=== PATIENT | female | born 1985 | race Caucasian/White ===

== ENCOUNTER 2020-04-02 18:29 | Emergency (ER) | payer OTHER, SELFPAY ==
[2020-04-02 18:32] VITALS: BP 109/84; PULSE 83; RESP 16; TEMP 36.6; O2SAT 99
--- NOTE | 2020-04-02 19:08 | ED.SKABFB ---
HPI - Skin/Abscess/Foreign Bdy General Chief complaint: Skin/Abscess/Foreign Body Stated complaint: abscesses Time Seen by Provider: 04/02/20 18:42 Source: patient Mode of arrival: ambulatory Limitations: no limitations History of Present Illness HPI narrative: This is a 35 year old male that presents to the ER for redness and swelling to bilateral axilla. Reports she noted redness and swelling to the right axilla 3 days ago. Yesterday she noted an area of pain and swelling to the left axilla. Denies fever or drainage. Related Data Home Medications Medication Instructions Recorded Confirmed paroxetine HCl mg PO 04/02/20 Allergies Allergy/AdvReac Type Severity Reaction Status Date / Time No Known Allergies Allergy Verified 04/02/20 18:36 Review of Systems Review of Systems: Narrative: CONSTITUTIONAL: Denies fever SKIN: Reports redness and swelling All systems reviewed & are unremarkable except as noted in HPI and below PMFSH Past Medical History Medical History (Updated 04/02/20 @ 19:19 by Barbie Yuan PA-C) History of depression Social History Social History (Updated 04/02/20 @ 19:12 by Barbie Yuan PA-C) Substance use: never Exam Narrative: Exam Narrative: GENERAL: Well-appearing, obese, and in no acute distress. HEAD: Normocephalic, atraumatic. EYES: EOMI. EXTREMITIES: Normal range of motion. No edema. Right axilla with 3cm area of erythema and induration. Left axilla with 1cm area of erythema and induration. Tender to palpation. No central fluctuance to suggest abscess SKIN: Warm, dry, no rash. NEURO: No focal deficits. Alert and oriented x3. PSYCH: Normal mood and affect Course Vital Signs Vital signs: Vital Signs Temperature 97.9 F 04/02/20 18:32 Pulse Rate 83 04/02/20 18:32 Respiratory Rate 16 04/02/20 18:32 Blood Pressure 109/84 04/02/20 18:32 Pulse Oximetry 99 04/02/20 18:32 Temperature 97.9 F 04/02/20 18:32 Pulse Rate 83 04/02/20 18:32 Respiratory Rate 16 04/02/20 18:32 Blood Pressure 109/84 04/02/20 18:32 Pulse Oximetry 99 04/02/20 18:32 MDM - Skin/Abscess/Foreign Bdy MDM Narrative Medical decision making narrative: Patient presents the emergency department for an area of cellulitis to the right axilla. She is afebrile and nontoxic-appearing. She will be started on oral antibiotics. Patient is stable and felt appropriate for further outpatient evaluation. She is to follow-up with primary care doctor. She was given warnings to return to the ER Critical Care Time Critical Care Time Critical Care Time: No Discharge Plan Discharge Clinical Impression: Cellulitis Qualifiers: Site of cellulitis: extremity Site of cellulitis of extremity: axilla Laterality: right Qualified Code(s): L03.111 - Cellulitis of right axilla Patient Disposition: Home, Self-Care Condition: Stable Instructions: Antibiotic Form, Cellulitis (ED) Prescriptions: New doxycycline hyclate 100 mg capsule 100 mg PO BID 7 Days Qty: 14 RF: 0 No Action paroxetine HCl 40 mg tablet PO RF: 0 Follow-up/Referrals: PHYSICIAN NOT ON STAFF,NONSTAFF [Primary Care Provider] - Serafin Escoto MD [Physician] - 3 Days
[2020-04-02] MEDS: DOXYCYCLINE HYCLATE 100 MG TABLET PO (19:30)
== END 2020-04-02 20:23 | disposition home or self-care (01) ==
LOC: ANHED 19:41
PROVIDERS: Emergency Provider Emergency Medicine
DX: L03.111 Cellulitis of right axilla (principal); F32.9 Major depressive disorder, single episode, unspecified
CPT/HCPCS: 99283; A9270

== ENCOUNTER 2020-06-07 07:33 | Outpatient (CLI) | payer OTHER, SELFPAY ==
--- NOTE | ~2020-06-07 | US_ITS ---
EXAMINATION: US right upper quadrant DATE: 06/07/2020 08:09 INDICATION: Abnormal liver function tests. TECHNIQUE: Multiple grayscale and Doppler ultrasound images of the abdomen were obtained. COMPARISON: None FINDINGS: The visualized portions of the head of the pancreas are normal. The liver is normal without focal lesion. No liver surface nodularity. There is normal flow in main portal vein. The gallbladder is normal in size contains gallstones. No gallbladder wall thickening or sonographic Lombardi sign. Th e common duct is normal and measures 5 mm. IMPRESSION: 1. Cholelithiasis. No evidence of acute cholecystitis. Reviewed, dictated and finalized at location A. [employer]
== END 2020-06-07 07:34 | disposition home or self-care (01) ==
PROVIDERS: PCP Emergency Medicine; Visit Provider Emergency Medicine
DX: R74.8 Abnormal levels of other serum enzymes (principal); K80.20 Calculus of gallbladder without cholecystitis without obstruction
CPT/HCPCS: 76705

== ENCOUNTER 2020-12-18 14:42 | Emergency (ER) | payer BC, MEDICAID, SELFPAY ==
[2020-12-18 14:48] VITALS: BP 128/86; PULSE 100; RESP 14; TEMP 36.6; O2SAT 98
--- NOTE | 2020-12-18 14:51 | ECG_ITS ---
Measurements Intervals [place] Rate: 83 P: 22 WI: 145 QRS: 37 QRSD: 84 T: 32 QT: 358 QTc: 422 Interpretive Statements SINUS RHYTHM NORMAL ECG Electronically Signed On 12-18-2020 15:21:28 CDT by Garett Enciso D.O.
[2020-12-18 15:03] LABS: Basophils Absolute Auto 0.1 K/mm3 (0.0-0.1); Basophils Percent Auto 0.8 % (0.2-1.2); Eosinophils Absolute Auto 0.3 K/mm3 (0-0.3); Eosinophils Percent Auto 4.7 % (0-4.4); Hematocrit 37.3 % (37.0-47.0); Immature Granulocyte Absolute 0.01 K/mm3 (0.00-0.031); Immature Granulocyte Percent A 0.1 % (0-0.5); Lymphocytes Absolute Auto 1.84 K/mm3 (0.9-3.2); Lymphocytes Percent Auto 25.3 % (18.3-44.2); Mean Corpuscular HGB Conc 32.2 g/dl (32-36); Mean Corpuscular Hemoglobin 26.3 pg (26-34); Mean Corpuscular Volume 81.6 fl (80-100); Mean Platelet Volume 8.5 fl (7.4-10.4); Monocytes Absolute Auto 0.3 K/mm3 (0.1-0.6); Monocytes Percent Auto 4.7 % (2.6-8.5); Neutrophils Absolute Auto 4.7 K/mm3 (1.3-6.7); Neutrophils Percent Auto 64.4 % (45.5-73.1); Platelet Count Result 350 k/mm3 (150-375); Red Blood Count 4.57 M/mm3 (4.2-5.4); Red Cell Distribution Width 13.8 % (11.5-14.5); White Blood Count 7.3 K/mm3 (4.5-10.0)
[2020-12-18 15:16] LABS: Alanine Aminotransferase 39 U/L (4-35); Albumin Level 4.5 g/dL (3.5-5.1); Alkaline Phosphatase 139 U/L (38-126); Anion Gap 11 mmol/L (8-16); Aspartate Amino Transferase 41 U/L (14-36); Bilirubin,Total 0.2 mg/dL (0.2-1.3); Blood Urea Nitrogen 11 mg/dL (7-17); Calcium 9.7 mg/dL (8.4-10.2); Carbon Dioxide 22 mmol/L (22-30); Chloride 105 mmol/L (98-107); Estimated CRCL calculation 121 ml/min; Estimated Glomerular Filt Rate > 60; Glucose 98 mg/dL (65-105); Potassium 4.3 mmol/L (3.4-5.0); Sodium 138 mmol/L (137-145)
[2020-12-18 16:19] VITALS: BP 107/74; PULSE 86; RESP 20; O2SAT 100
[2020-12-18 16:34] LABS: Add Urine Microscopic? YES; Appearance Urine Clear (Clear); Bilirubin Urine Negative (Negative); Blood Urine Negative (Negative); Color Urine Yellow (Yellow); Glucose Urine UA Negative (Negative); Ketones Urine Negative (Negative); Leukocyte Esterase Ur Trace LEU/UL (Negative); Nitrate Urine Negative (Negative); Protein Urine Negative (Negative); RBC Urine 0-2 /hpf (0-2); Specific Grav Ur 1.015 (1.001-1.035); Squamous Epithelial Cell Urine Moderate /hpf (Few); Urobilinogen Urine Negative mg/dL (<2.0); WBC Urine 0-3 /hpf
--- NOTE | 2020-12-18 16:57 | ED.GENADULT ---
HPI - General Adult General Chief complaint: Neuro Symptoms/Deficit Stated complaint: Have MS- legs are going numb Time Seen by Provider: 12/18/20 16:39 History of Present Illness HPI narrative: Patient is a 35-year-old female who presents to the ER at the request of her primary care physician to make sure she does not have pyelonephritis. Patient denies any flank pain or fevers or chills. She is without urinary frequency or dysuria. She saw her PCP today because she did miss work over the weekend due to feeling weak. Patient has known MS. She was seen by an MS specialist at [facility]. She is prescribed Tegretol but has not yet started it. She reports chronic tingling in her knees down to her toes bilaterally and also has occasional buckling of her legs due to weakness. This is been persistent for the last 3 months. She reports she was diagnosed with MS in 2014 but was in denial. 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 Related Data Home Medications Medication Instructions Recorded Confirmed paroxetine HCl mg PO 04/02/20 Allergies Allergy/AdvReac Type Severity Reaction Status Date / Time No Known Allergies Allergy Verified 12/18/20 16:23 Review of Systems Review of Systems: All systems reviewed & are unremarkable except as noted in HPI and below Constitutional: Constitutional: Denies chills, Denies fever(s) and Denies weakness ENT: Denies nasal congestion and Denies sore throat Gastrointestinal: Gastrointestinal: Denies abdominal pain, Denies nausea and Denies vomiting Genitourinary: Genitourinary: Denies nocturia, Denies dysuria and Denies flank pain PMFSH Past Medical History Medical History (Updated 12/18/20 @ 17:04 by Jorge Cadena MD) History of depression Multiple sclerosis Surgical History Surgical History (Updated 12/18/20 @ 17:00 by Jorge Cadena MD) No pertinent past surgical history Social History Social History (System 04/03/20 @ 12:59 by Farheen De La Rosa) Substance use: never Exam Narrative: Exam Narrative: GENERAL: Well-appearing, well-nourished, and in no acute distress. HEAD: Normocephalic, atraumatic. CHEST: Clear to auscultation. No respiratory distress. HEART: Regular rate and rhythm. Normal peripheral pulses. ABDOMEN: Soft, nontender, nondistended, no CVA tenderness. EXTREMITIES: 5 out of 5 strength in the lower extremities bilaterally. Ambulates without issue. SKIN: Warm, dry, no rash. NEURO: Alert and oriented x3. Normal DTRs in the lower extremities. PSYCH: Normal mood and affect. Course Course Emergency Course: Patient informed of results. Discharge home. Will give a work note should she can start her medication. Vital Signs Vital signs: Vital Signs Temperature 97.8 F 12/18/20 14:48 Pulse Rate 100 12/18/20 14:48 Respiratory Rate 14 12/18/20 14:48 Blood Pressure 128/86 12/18/20 14:48 Pulse Oximetry 98 12/18/20 14:48 Temperature 97.8 F 12/18/20 14:48 Pulse Rate 86 12/18/20 16:19 Respiratory Rate 20 12/18/20 16:19 Blood Pressure 107/74 12/18/20 16:19 Pulse Oximetry 100 12/18/20 16:19 Medical Decision Making Vital Signs Vital Signs: Vital Signs Temperature 97.8 F 12/18/20 14:48 Pulse Rate 100 12/18/20 14:48 Respiratory Rate 14 12/18/20 14:48 Blood Pressure 128/86 12/18/20 14:48 Pulse Oximetry 98 12/18/20 14:48 Temperature 97.8 F 12/18/20 14:48 Pulse Rate 86 12/18/20 16:19 Respiratory Rate 20 12/18/20 16:19 Blood Pressure 107/74 12/18/20 16:19 Pulse Oximetry 100 12/18/20 16:19 Lab Data Result diagrams: 12/18/20 14:56 12/18/20 14:56 Labs: Lab Results 12/18/20 12/18/20 12/18/20 Range/Units 14:56 14:56 16:14 WBC 7.3 (4.5-10.0) K/mm3 RBC 4.57 (4.2-5.4) M/mm3 Hgb 12.0 (12.0-15.0) g/dL Hct 37.3 (37.0-47.0) % MCV 81.6 (80-100) fl MCH 26.3 (2
== END 2020-12-18 17:19 | disposition home or self-care (01) ==
PROVIDERS: Emergency Provider Emergency Medicine; PCP Emergency Medicine
DX: G35 Multiple sclerosis (principal)
CPT/HCPCS: 36415; 80053; 81001; 81025; 85025; 93005; 99283

== ENCOUNTER 2021-05-13 22:37 | Emergency (ER) | payer BC, MEDICAID, SELFPAY ==
[2021-05-13 22:40] VITALS: BP 148/89; PULSE 105; RESP 18; TEMP 36.4; O2SAT 98
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
== END 2021-05-13 23:25 | disposition home or self-care (01) ==
PROVIDERS: Emergency Provider Emergency Medicine; PCP Emergency Medicine
DX: S00.83XA Contusion of other part of head, initial encounter (principal); G35 Multiple sclerosis; F32.A Depression, unspecified; Y04.2XXA Assault by strike against or bumped into by another person, initial encounter
CPT/HCPCS: 99282

== ENCOUNTER → 2021-06-15 01:01 | Outpatient (CLI) | payer BC, MEDICAID, SELFPAY ==
[2021-06-15 19:18] LABS: SARS-CoV-2 RNA PCR Negative
== END ==
PROVIDERS: PCP Emergency Medicine; Visit Provider Emergency Medicine
DX: R68.89 Other general symptoms and signs (principal); Z20.822 Contact with and (suspected) exposure to COVID-19
CPT/HCPCS: C9803; U0003; U0005

== ENCOUNTER 2022-09-19 10:44 | Emergency (ER) | payer BC, MEDICAID, SELFPAY ==
--- NOTE | ~2022-09-19 | US_ITS ---
EXAMINATION: US venous doppler UE RT DATE: 09/19/2022 13:52 INDICATION: Right upper limb pain and swelling. TECHNIQUE: Grayscale ultrasound images without and with compression and Doppler ultrasound images of the right upper extremity veins were obtained. COMPARISON: None. FINDINGS: The visualized portions of the right internal jugular vein, subclavian vein, axillary vein, brachial veins, basilic vein, cephalic vein, radial vein, and ulnar vein are patent. IMPRESSION: 1. No deep venous thrombosis. Reviewed, dictated and finalized at location A.
--- NOTE | ~2022-09-19 | XR_ITS ---
XR humerus RT DATE: 09/19/2022 12:19 INDICATION: Generalized right arm pain. No injury. TECHNIQUE: AP and lateral views COMPARISON: None FINDINGS: No fracture or dislocation, periosteal reaction or bone destruction. Normal alignment at th e acromioclavicular and glenohumeral joints. IMPRESSION: No significant bony abnormality Reviewed, dictated and finalized at location L.
[2022-09-19 10:49] VITALS: BP 104/74; PULSE 96; RESP 16; TEMP 36.4; O2SAT 97
--- NOTE | 2022-09-19 11:50 | ED.GENADULT ---
HPI - General Adult General Chief complaint: Extremity Problem,Nontraumatic Stated complaint: right upper arm pain with movement Time Seen by Provider: 09/19/22 10:52 History of Present Illness HPI narrative: 37-year-old history of MS presents to the emergency room for evaluation of acute onset of right upper arm pain. Patient denies any injury or trauma. No history of DVTs. Patient reports pain to her right biceps, which is exacerbated with movements. Related Data Home Medications Medication Instructions Recorded Confirmed paroxetine HCl 40 mg tablet mg PO 04/02/20 glatiramer 40 mg/mL subcutaneous mg subcut 05/13/21 05/13/21 syringe Allergies Allergy/AdvReac Type Severity Reaction Status Date / Time No Known Allergies Allergy Verified 09/19/22 11:26 Review of Systems Review of Systems: CONSTITUTIONAL: Denies fever, chills, or sweats. EYES: Denies visual changes, redness, or discharge. ENT: Denies rhinorrhea, congestion, sore throat, or otalgia. CARDIOVASCULAR: Denies chest pain, palpitations, or edema. RESPIRATORY: Denies cough or dyspnea. GASTROINTESTINAL: Denies abdominal pain, nausea, vomiting, or diarrhea. GENITOURINARY: Denies dysuria or hematuria. SKIN: Denies rash or itching. MUSCULOSKELETAL: Right arm pain per HPI NEUROLOGIC: Denies headache, numbness, dizziness, or weakness. PSYCHIATRIC: Denies anxiety or depression. [facility] Past Medical History Medical History History of depression Multiple sclerosis Surgical History Surgical History No pertinent past surgical history Social History Social History Substance use: never Exam Narrative: GENERAL: Well-appearing, well-nourished, no physical limitations, and in no acute distress. HEAD: Normocephalic, atraumatic. EYES: Conjunctivae normal, PERRLA and EOMI. ENT: External nose normal, Nares clear, no rhinorrhea or epistaxis. Mucous membranes moist. Oropharynx without tonsillar hypertrophy exudate or other lesions. External ears normal, bilateral TMs normal bilaterally NECK: Supple. No meningeal signs. No adenopathy or masses. No carotid bruits or JVD CHEST: Clear to auscultation. No respiratory distress. No wheezes rales or rhonchi. No tenderness. HEART: Regular rate and rhythm. No murmur heard. Normal peripheral pulses. EXTREMITIES: RUE: +TTP over the biceps, no obvious abnormality. No bony tenderness. Pain with shoulder range of motion. Pain with flexion. Neurovascular is intact distally. No signs of ecchymoses SKIN: Warm, dry, no rash. No noted wounds NEURO: No focal deficits. Alert and oriented x3. MAEW. CN's II-XI intact bilaterally, normal gait PSYCH: Cooperative. Normal mood and affect. Course Vital Signs Vital signs: Vital Signs Temperature 36.4 C 09/19/22 10:49 Pulse Rate 96 09/19/22 10:49 Respiratory Rate 16 09/19/22 10:49 Blood Pressure 104/74 09/19/22 10:49 Pulse Oximetry 97 09/19/22 10:49 Oxygen Delivery Room Air 09/19/22 10:49 Temperature 36.4 C 09/19/22 10:49 Pulse Rate 96 09/19/22 10:49 Respiratory Rate 16 09/19/22 10:49 Blood Pressure 104/74 09/19/22 10:49 Pulse Oximetry 97 09/19/22 10:49 Oxygen Delivery Room Air 09/19/22 10:49 Medical Decision Making Vital Signs Vital Signs: Vital Signs Temperature 36.4 C 09/19/22 10:49 Pulse Rate 96 09/19/22 10:49 Respiratory Rate 16 09/19/22 10:49 Blood Pressure 104/74 09/19/22 10:49 Pulse Oximetry 97 09/19/22 10:49 Oxygen Delivery Room Air 09/19/22 10:49 Temperature 36.4 C 09/19/22 10:49 Pulse Rate 96 09/19/22 10:49 Respiratory Rate 16 09/19/22 10:49 Blood Pressure 104/74 09/19/22 10:49 Pulse Oximetry 97 09/19/22 10:49 Oxygen Delivery Room Air 09/19/22 10:49 Discharge Plan Discharge Prescriptions: No Actio
[2022-09-19 12:07] LABS: Basophils Absolute Auto 0.1 K/mm3 (0.0-0.1); Basophils Percent Auto 0.8 % (0.2-1.2); Eosinophils Absolute Auto 0.2 K/mm3 (0-0.3); Eosinophils Percent Auto 2.2 % (0-4.4); Hematocrit 38.2 % (37.0-47.0); Hemoglobin 12.4 g/dL (12.0-15.0); Immature Granulocyte Absolute 0.01 K/mm3 (0.00-0.031); Immature Granulocyte Percent A 0.1 % (0-0.5); Lymphocytes Absolute Auto 2.62 K/mm3 (0.9-3.2); Lymphocytes Percent Auto 35.7 % (18.3-44.2); Mean Corpuscular HGB Conc 32.5 g/dl (32-36); Mean Corpuscular Hemoglobin 27.6 pg (26-34); Mean Corpuscular Volume 85.1 fl (80-100); Mean Platelet Volume 8.4 fl (7.4-10.4); Monocytes Absolute Auto 0.5 K/mm3 (0.1-0.6); Neutrophils Percent Auto 54.2 % (45.5-73.1); Platelet Count Result 311 k/mm3 (150-375); Red Blood Count 4.49 M/mm3 (4.2-5.4); Red Cell Distribution Width 13.1 % (11.5-14.5); White Blood Count 7.3 K/mm3 (4.5-10.0)
[2022-09-19 12:15] LABS: Alanine Aminotransferase 59 U/L (6-35); Albumin Level 4.5 g/dL (3.5-5.1); Alkaline Phosphatase 216 U/L (38-126); Anion Gap 9 mmol/L (8-16); Aspartate Amino Transferase 42 U/L (14-36); Bilirubin,Total 0.5 mg/dL (0.2-1.3); Blood Urea Nitrogen 15 mg/dL (7-17); Calcium 9.2 mg/dL (8.4-10.2); Carbon Dioxide 27 mmol/L (22-30); Chloride 104 mmol/L (98-107); Estimated CRCL calculation 125 ml/min; Estimated Glomerular Filt Rate > 60; Glucose 98 mg/dL (65-110); Potassium 4.2 mmol/L (3.4-5.0); Sodium 140 mmol/L (137-145)
[2022-09-19 12:44] LABS: D Dimer 0.69 ug/mL (<0.48)
[2022-09-19 12:58] VITALS: BP 108/82; PULSE 90; RESP 18; O2SAT 98
[2022-09-19 14:26] VITALS: PULSE 78; RESP 16; O2SAT 100
== END 2022-09-19 14:28 | disposition home or self-care (01) ==
PROVIDERS: Emergency Provider Nurse Practitioner Family; PCP Emergency Medicine
DX: M79.621 Pain in right upper arm (principal); G35 Multiple sclerosis; F32.A Depression, unspecified
CPT/HCPCS: 36415; 73060; 80053; 85025; 85380; 93971; 99284

== ENCOUNTER 2023-01-29 15:27 | Emergency (ER) | payer MEDICAID, SELFPAY ==
[2023-01-29 15:37] VITALS: BP 115/81; PULSE 103; RESP 20; TEMP 36.3; O2SAT 96
--- NOTE | 2023-01-29 15:59 | ED.URI ---
HPI - URI/Sore Throat General Chief Complaint: Upper Respiratory Infection Stated Complaint: Sinus Time Seen by Provider: 01/29/23 15:35 Source: patient and RN notes reviewed Mode of arrival: ambulatory Limitations: no limitations History of Present Illness HPI Narrative: Patient presents today complaining fatigue, congestion, cough, headache. Symptoms began this morning. Patient was exposed to her daughter who was diagnosed with COVID last week. She has tried no medication for symptoms prior to arrival. States boss at work once her tested for COVID before she can return. Related Data Home Medications Medication Instructions Recorded Confirmed paroxetine HCl 40 mg tablet mg PO 04/02/20 carbamazepine 100 mg chewable mg 01/29/23 01/29/23 tablet omeprazole 20 mg capsule,delayed 20 mg PO DAILY 01/29/23 01/29/23 release Allergies Allergy/AdvReac Type Severity Reaction Status Date / Time No Known Allergies Allergy Verified 01/29/23 15:35 Review of Systems Review of Systems: CONSTITUTIONAL: Denies body aches, fever, chills, or sweats.+ fatigue EYES: Denies visual changes, redness, or discharge. ENT: Denies rhinorrhea, sore throat, or otalgia.+ congestion CARDIOVASCULAR: Denies chest pain, palpitations, or edema. RESPIRATORY: Denies dyspnea.+ cough GASTROINTESTINAL: Denies abdominal pain, nausea, vomiting, or diarrhea. GENITOURINARY: Denies dysuria or hematuria. SKIN: Denies rash, itching, or wounds. MUSCULOSKELETAL: Denies back pain, joint pain, or myalgia. NEUROLOGIC: Denies numbness, tingling, or weakness.+ headache PSYCH: Denies depression or anxiety. [facility] Past Medical History Medical History History of depression Multiple sclerosis Surgical History Surgical History No pertinent past surgical history Social History Social History Substance use: never Comments At time of signature, I have reviewed and agree with nursing past medical, surgical, social and family history unless otherwise noted. Please see nursing chart for further information. There is no relevant family history pertinent to the presenting complaint Exam Narrative: GENERAL: Well-appearing, well-nourished, and in no acute distress. HEAD: Normocephalic, atraumatic. EYES: EOMI. No redness or drainage. Conjunctivae normal. ENT: Mucous membranes pink and moist. Nares clear. No rhinorrhea. TMs normal bilaterally. Throat normal. Uvula midline. NECK: Normal AROM. Supple. No lymphadenopathy. CHEST: No respiratory distress. Clear to auscultation. HEART: Regular rate and rhythm. No murmur appreciated. Normal peripheral pulses. EXTREMITIES: Normal range of motion. No edema. SKIN: Warm, dry, no rash. Capillary refill normal. Normal skin turgor. NEURO: No focal deficits. Alert and oriented x3. Gait steady. PSYCH: Normal affect. No signs of depression or anxiety. Course Course Level of Care: Express Care Visit Vital Signs Vital signs: Vital Signs Temperature 97.3 F L 01/29/23 15:37 Pulse Rate 103 H 01/29/23 15:37 Respiratory Rate 20 01/29/23 15:37 Blood Pressure 115/81 01/29/23 15:37 Pulse Oximetry 96 01/29/23 15:37 Temperature 97.3 F L 01/29/23 15:37 Pulse Rate 103 H 01/29/23 15:37 Respiratory Rate 20 01/29/23 15:37 Blood Pressure 115/81 01/29/23 15:37 Pulse Oximetry 96 01/29/23 15:37 Reviewed. Pt has been instructed to follow up with her PCP regarding her elevated blood pressure today. MDM - URI/Sore Throat MDM Narrative Medical decision making narrative: COVID-19 negative. Discussed with patient that it may be too early for COVID-19 test to be positive. Instructed patient to buy a home test in test in 1-2 more days. Discussed avoiding return to work until she has tested again. Discuss
== END 2023-01-29 16:07 | disposition home or self-care (01) ==
PROVIDERS: Emergency Provider Nurse Practitioner; PCP Emergency Medicine
DX: J06.9 Acute upper respiratory infection, unspecified (principal); Z20.822 Contact with and (suspected) exposure to COVID-19; F32.A Depression, unspecified; G35 Multiple sclerosis
CPT/HCPCS: 87426; 99213; C9803; G0463

== ENCOUNTER 2024-02-02 09:25 | Emergency (ER) | payer OTHER, SELFPAY ==
[2024-02-02 09:38] VITALS: BP 124/76; PULSE 114; RESP 21; TEMP 36.3; O2SAT 94
--- NOTE | 2024-02-02 09:45 | ED.ALLEREA ---
HPI - Allergic Reaction General Chief complaint: Allergic Reaction Stated complaint: allergic reaction Time Seen by Provider: 02/02/24 09:44 Source: patient Mode of arrival: ambulatory Limitations: no limitations History of Present Illness HPI narrative: patient is a 38-year-old female who presents to the ED with concern for allergic reaction. 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 She does have cats in her home, but states they stay in select areas and do not usually bother her. She stayed at her sister's house last night and was around several kittens. Reports she woke up this morning with redness and swelling of her face, cheeks, under eyes, hands. has not taken anything for her symptoms. Reports her face is very itchy. Denies difficulty breathing or swallowing, swelling of tongue/ lip / throat, nausea, vomiting, fevers. Denies any other new soaps, lotions, detergents, medications, foods. Related Data Home Medications Medication Instructions Recorded Confirmed paroxetine HCl 40 mg tablet mg PO 04/02/20 carbamazepine 100 mg chewable mg 01/29/23 01/29/23 tablet omeprazole 20 mg capsule,delayed 20 mg PO DAILY 01/29/23 01/29/23 release Allergies Allergy/AdvReac Type Severity Reaction Status Date / Time No Known Allergies Allergy Verified 02/02/24 09:48 Review of Systems Review of Systems: All systems reviewed & are unremarkable except as noted in HPI. All systems reviewed & are unremarkable except as noted in HPI and below PMFSH Past Medical History Medical History History of depression Multiple sclerosis Surgical History Surgical History No pertinent past surgical history Social History Social History Substance use: never Exam Narrative: GENERAL: Well appearing, obese with BMI of 38.9, non-toxic, in no acute distress. HEAD: Normocephalic, atraumatic. EENT: PERRL/EOMI, conjunctiva clear. No significant swelling of eyelids. Mild erythema and swelling noted to candice facial cheeks and inferior periorbital regions. Scattered urticaria, also extending to anterior neck region. No swelling of lips/ tongue. No stridor or trismus. No distress. No oral mucosal lesions. RESPIRATORY: Airway patent, respirations nonlabored. Clear to auscultation bilaterally, no rales, rhonchi, wheezing. CARDIOVASCULAR: Borderline tachycardic with regular rhythm without murmurs, rubs, or gallops. MUSCULOSKELETAL: Moves all extremities. No gross deformities. SKIN: Warm, dry, normal color. NEURO: A&O X3. Speech clear. PSYCHIATRIC: Appropriate mood and affect. Normal interaction. Course Vital Signs Vital signs: Vital Signs Temperature 97.4 F L 02/02/24 09:38 Pulse Rate 114 H 02/02/24 09:38 Respiratory Rate 21 H 02/02/24 09:38 Blood Pressure 124/76 02/02/24 09:38 Pulse Oximetry 94 02/02/24 09:38 Oxygen Delivery Room Air 02/02/24 09:38 Temperature 97.1 F L 02/02/24 11:23 Pulse Rate 78 02/02/24 11:23 Respiratory Rate 16 02/02/24 11:23 Blood Pressure 109/70 02/02/24 11:23 Pulse Oximetry 98 02/02/24 11:23 Oxygen Delivery Room Air 02/02/24 09:44 MDM - Allergic Reaction MDM Narrative Medical decision making narrative: patient presented to ED with allergic reaction, hives/redness to face, recent exposure to kittens/known allergic trigger. Patient tachycardic upon arrival but in no acute distress. No signs of anaphylaxis or systemic allergic reaction at this time. No respiratory distress or signs of acute/impending airway compromise. Patient given solumedrol, pepcid, benadryl in the ED with improvement. Feel she is safe for discharge home. Will discharge home on medrol dosepak. Advised patient to continue Pepcid and Benadryl at home, recommended close follow-up with PCP milo
[2024-02-02] MEDS: methylPREDNISolone SOD SUCC 125 MG VIAL IM (09:59)
[2024-02-02] MEDS: FAMOTIDINE 20 MG TABLET PO (10:00)
[2024-02-02] MEDS: diphenhydrAMINE HCl CAP 25 MG CAPSULE PO (10:00)
[2024-02-02 11:06] VITALS: BP 121/81; PULSE 90; RESP 16; O2SAT 98
[2024-02-02 11:23] VITALS: BP 109/70; PULSE 78; RESP 16; TEMP 36.2; O2SAT 98
== END 2024-02-02 11:40 | disposition home or self-care (01) ==
PROVIDERS: Emergency Provider Physician Assistant; PCP Emergency Medicine
DX: L50.0 Allergic urticaria (principal)
CPT/HCPCS: 96372; 99283; A9270; J2919